=== PATIENT | female | born 1990 | race Caucasian/White ===

== ENCOUNTER 2020-04-21 08:43 | Outpatient (REF) | payer OTHER, SELFPAY | END 2020-04-21 08:44 | disposition home or self-care (01) | LOC: HO.HOSX 08:43 | PROVIDERS: Visit Provider Physician Assistant | DX: Z13.89 Encounter for screening for other disorder (principal) ==

== ENCOUNTER 2020-04-23 08:43 | Outpatient (REF) | payer OTHER, SELFPAY ==
--- NOTE | 2020-04-23 12:38 | XR_ITS ---
EXAMINATION: XR SHOULDER, RIGHT XR SHOULDER, LEFT CLINICAL INFORMATION: Shoulder pain. COMPARISON: None TECHNIQUE: Each shoulder is imaged in 3 views. There are a total of 6 views. FINDINGS: There is no fracture or dislocation or destructive process. The bony mineralization is normal. The glenohumeral joint shows no narrowing or erosive change or chondrocalcinosis. Bilateral acromioclavicular alignment appears normal. There are no visible rotator cuff calcifications on either side. The lung apices appear clear. No pleural reaction. XR/XR shoulder LT min 2V IMPRESSION: Unremarkable bilateral shoulders.
--- NOTE | 2020-04-23 12:38 | XR_ITS ---
EXAMINATION: XR SHOULDER, RIGHT XR SHOULDER, LEFT CLINICAL INFORMATION: Shoulder pain. COMPARISON: None TECHNIQUE: Each shoulder is imaged in 3 views. There are a total of 6 views. FINDINGS: There is no fracture or dislocation or destructive process. The bony mineralization is normal. The glenohumeral joint shows no narrowing or erosive change or chondrocalcinosis. Bilateral acromioclavicular alignment appears normal. There are no visible rotator cuff calcifications on either side. The lung apices appear clear. No pleural reaction. XR/XR shoulder RT min 2V IMPRESSION: Unremarkable bilateral shoulders.
== END 2020-04-23 08:44 | disposition home or self-care (01) ==
LOC: HO.HOSX 08:43
PROVIDERS: Visit Provider Physician Assistant
DX: M25.511 Pain in right shoulder (principal); M25.512 Pain in left shoulder
CPT/HCPCS: 73030

== ENCOUNTER 2021-06-16 14:08 | Outpatient (REF) | payer MEDICAID, SELFPAY ==
[2021-06-16 14:52] LABS: MANUAL DIFF FLAG NO
[2021-06-16 15:02] LABS: Basophils Percent Auto 0.3 % (0-2); Eosinophils Absolute Auto 0.2 X10*3/uL (0.0-0.4); Eosinophils Percent Auto 3.8 % (0-4); Hemoglobin 10.6 g/dl (12.0-16.0); Imm Gran Abs Auto 0.01 X10*3/uL (0.00-0.03); Imm Gran Pct Auto 0.2 % (0.0-0.4); Lymphocytes Absolute Auto 2.6 X10*3/uL (1.2-4.9); Lymphocytes Percent Auto 44.2 % (20-40); Mean Corpuscular HGB Conc 31.2 g/dl (31.0-35.0); Mean Corpuscular Hemoglobin 28.3 pg (27.0-33.0); Mean Corpuscular Volume 90.7 fL (80.0-98.0); Mean Platelet Volume 10.3 fL (9.4-12.3); Monocytes Absolute Auto 0.4 X10*3/uL (0.1-1.2); Monocytes Percent Auto 6.7 % (2-11); Neutrophils Absolute Auto 2.6 x10*3/uL (2.0-8.3); Neutrophils Percent Auto 44.8 % (45-73); Platelet Count 339 X10*3/uL (160-400); Red Blood Count 3.75 X10*6/uL (4.20-5.50); Red Cell Distribution Width 13.6 % (11.0-16.0); White Blood Count 5.8 X10*3/uL (4.8-10.8)
[2021-06-16 15:33] LABS: Alanine Aminotransferase 24 U/L (0-31); Albumin Level 3.9 g/dL (3.5-5.0); Alkaline Phosphatase 34 U/L (39-117); Anion Gap 10 (12-20); Aspartate Amino Transferase 19 U/L (5-31); Bilirubin Total 0.3 mg/dL (0.0-1.0); Blood Urea Nitrogen 9 mg/dL (9-16); Calcium 8.9 mg/dL (8.4-10.2); Carbon Dioxide 24 mmol/L (22-29); Chloride 109 mmol/L (96-108); Cholesterol 141 mg/dL; Estimated Glomerular Filt Rate > 60; Glucose Random 95 mg/dL (60-115); HDL Cholesterol 50 mg/dL; LDL Cholesterol Calculated 81 mg/dl; Potassium 4.2 mmol/L (3.3-5.1); Sodium 139 mmol/L (135-145); Total Protein 6.7 g/dL (6.5-8.0); Triglycerides 51 mg/dL
[2021-06-16 15:54] LABS: Vitamin B12 392 pg/mL (200-900)
[2021-06-16 16:28] LABS: Ferritin 7 ng/mL (10-122)
[2021-06-16 17:36] LABS: CT PCR NOT DETECTED (Not Detect.); NG PCR NOT DETECTED (Not Detect.)
[2021-06-17 03:49] LABS: HIV AB/AG Nonreactive (Nonreactive)
[2021-06-17 03:54] LABS: Syphilis Screen Nonreactive (Nonreactive)
== END 2021-06-16 14:09 | disposition home or self-care (01) ==
LOC: HO.LAB 14:08
PROVIDERS: PCP Internal Medicine; Visit Provider Internal Medicine
DX: Z11.3 Encounter for screening for infections with a predominantly sexual mode of transmission (principal); Z11.4 Encounter for screening for human immunodeficiency virus [HIV]; B07.0 Plantar wart; D64.89 Other specified anemias; M54.2 Cervicalgia
CPT/HCPCS: 80053; 80061; 82607; 82728; 85025; 86780; 87389; 87491; 87591

== ENCOUNTER 2021-12-08 15:07 | Outpatient (REF) | payer MEDICAID, SELFPAY ==
[2021-12-08 15:21] LABS: MANUAL DIFF FLAG NO
[2021-12-08 15:29] LABS: Basophils Percent Auto 0.2 % (0-2); Eosinophils Absolute Auto 0.1 X10*3/uL (0.0-0.4); Eosinophils Percent Auto 1.3 % (0-4); Hemoglobin 11.6 g/dl (12.0-16.0); Imm Gran Abs Auto 0.02 X10*3/uL (0.00-0.03); Imm Gran Pct Auto 0.2 % (0.0-0.4); Lymphocytes Absolute Auto 2.9 X10*3/uL (1.2-4.9); Lymphocytes Percent Auto 35.2 % (20-40); Mean Corpuscular HGB Conc 32.2 g/dl (31.0-35.0); Mean Corpuscular Hemoglobin 27.1 pg (27.0-33.0); Mean Corpuscular Volume 84.1 fL (80.0-98.0); Mean Platelet Volume 9.9 fL (9.4-12.3); Monocytes Absolute Auto 0.6 X10*3/uL (0.1-1.2); Monocytes Percent Auto 7.1 % (2-11); Neutrophils Absolute Auto 4.6 x10*3/uL (2.0-8.3); Platelet Count 325 X10*3/uL (160-400); Red Blood Count 4.28 X10*6/uL (4.20-5.50); Red Cell Distribution Width 16.1 % (11.0-16.0); White Blood Count 8.2 X10*3/uL (4.8-10.8)
[2021-12-08 15:58] LABS: Alanine Aminotransferase 8 U/L (0-31); Albumin Level 4.3 g/dL (3.5-5.0); Alkaline Phosphatase 41 U/L (39-117); Anion Gap 13 (12-20); Aspartate Amino Transferase 13 U/L (5-31); Bilirubin Total 0.5 mg/dL (0.0-1.0); Blood Urea Nitrogen 6 mg/dL (9-16); Calcium 9.2 mg/dL (8.4-10.2); Carbon Dioxide 25 mmol/L (22-29); Chloride 104 mmol/L (96-108); Estimated Glomerular Filt Rate > 60; Glucose Random 94 mg/dL (60-115); Potassium 4.7 mmol/L (3.3-5.1); Sodium 137 mmol/L (135-145); Total Protein 7.4 g/dL (6.5-8.0)
[2021-12-08 16:18] LABS: Ferritin 10 ng/mL (10-122); Thyroid Stimulating Hormone 1.53 uIU/mL (0.32-4.0)
== END 2021-12-08 15:08 | disposition home or self-care (01) ==
LOC: HO.LAB 15:07
PROVIDERS: PCP Internal Medicine; Visit Provider Internal Medicine
DX: Z00.00 Encounter for general adult medical examination without abnormal findings (principal); Z13.31 Encounter for screening for depression; D50.8 Other iron deficiency anemias
CPT/HCPCS: 36415; 80053; 82728; 84443; 85025

== ENCOUNTER 2022-08-02 11:00 | Outpatient (RCR) | payer MEDICAID, SELFPAY ==
--- NOTE | 2022-07-01 14:25 | MHC.PT.EP ---
[facility] [place] Office [place] Office [place] Office [address] Tracey Serrano [address] [phone] F: [phone] F: [phone] F: [phone] F: [phone] Physical Therapy Plan of Care Date of Evaluation: Date of Surgery: N/A Diagnosis: Lopez's palsy (RC) Assessment: pt is a 32 y/o female presenting to physical therapy w/ referring diagnosis of Lopez's palsy. Her initial onset was approximately 3 weeks ago putting her in the optimal timeframe for neuroplasticity and rehabilitation. She currently presents w/ significant facial paralysis that is limiting the ability to protect her eye, chew and swallow appropriately to prevent choking. Impairments include pain, decreased range of motion, decreased strength, impaired functional mobility, and impaired postural awareness. pt is a good candidate for skilled PT due to age, potential remediation of impairments, typical disease/condition progression and prognosis, comorbidities, and motivation. pt would benefit from skilled PT intervention to provide a tailored strengthening and stretching exercise program, functional training, gait training, postural re-training, neuromuscular re-education, modalities as needed for pain, equipment safety demonstration. Frequency and Duration: The patient will be seen 3x/wk for 4 wks Short Term Goals: pt will be I w/ HEP to promote self-management of condition. pt will improve L eye closure to 100% to protect eye during sneezing/coughing. Water Resource Manager Goals: pt will demonstrate 100 % symmetry in orbicularis anna to promote ease in self-feeding including drinking from a straw. pt will improve R eye opening by 75% to promote ease in visual scanning of environment for ambulation and driving. Treatment Plan: Modalities to reduce pain, spasms and effusion. Manual therapy to restore motion and function. Therapeutic exercise to improve strength and flexibility. Neuromuscular re-education for posture and balance. Therapeutic activities to return to functional activities of daily living. Electronically signed by: Mary York PT, DPT Please sign and return to therapist. Thank you for your referral.
--- NOTE | 2022-08-26 08:24 | MHC.PT.DC ---
[facility] [place] Office [place] Office [place] Office [address] Tracey Serrano 140 [facility] [phone] F: [phone] F: [phone] F: [phone] F: [phone] Physical Therapy Discharge Report Diagnosis: Lopez's palsy (RC) Date of Surgery: N/A Date of Evaluation: 07/01/22 Date of Discharge: 08/26/22 Treatments to Date: 9 Cancellations to Date: 3 No Shows to Date: 1 Discharge Status: Improved Function Discharge Summary: The patient overall felt her neuromuscular coordination and facial muscle strength were improving. The patient, however, was resistant to education that exercise has the greatest effect on her recovery as opposed to other modalities including NMES and soft tissue manipulation. She would not be appropriate for re-referral for this diagnosis as she has already been given a complete home exercise program and had minimal response to modalities. Electronically signed by: Mary York PT, DPT Please sign and return to therapist. Thank you for your referral.
== END 2022-08-26 08:25 | disposition home or self-care (01) ==
LOC: HO.PT 11:00
PROVIDERS: PCP Internal Medicine; Visit Provider Internal Medicine
DX: G51.0 Bell's palsy (principal)
CPT/HCPCS: 97110; 97112; 97140; 97161

== ENCOUNTER 2023-10-06 11:15 | Outpatient (REF) | payer MEDICAID, SELFPAY ==
[2023-10-06 11:29] LABS: MANUAL DIFF FLAG NO
[2023-10-06 11:57] LABS: Basophils Percent Auto 0.4 % (0-2); Eosinophils Absolute Auto 0.2 X10*3/uL (0.0-0.4); Eosinophils Percent Auto 2.3 % (0-4); Hematocrit 38.9 % (37.0-47.0); Hemoglobin 12.5 g/dl (12.0-16.0); Imm Gran Abs Auto 0.02 X10*3/uL (0.00-0.03); Imm Gran Pct Auto 0.3 % (0.0-0.4); Lymphocytes Absolute Auto 2.6 X10*3/uL (1.2-4.9); Lymphocytes Percent Auto 32.7 % (20-40); Mean Corpuscular HGB Conc 32.1 g/dl (31.0-35.0); Mean Corpuscular Hemoglobin 27.8 pg (27.0-33.0); Mean Corpuscular Volume 86.4 fL (80.0-98.0); Mean Platelet Volume 10.6 fL (9.4-12.3); Monocytes Absolute Auto 0.7 X10*3/uL (0.1-1.2); Monocytes Percent Auto 8.7 % (2-11); Neutrophils Absolute Auto 4.3 x10*3/uL (2.0-8.3); Neutrophils Percent Auto 55.6 % (45-73); Platelet Count 334 X10*3/uL (160-400); Red Cell Distribution Width 13.7 % (11.0-16.0); White Blood Count 7.8 X10*3/uL (4.8-10.8)
[2023-10-06 12:15] LABS: Amphetamine Screen Urine Not Detected (Not Detect); Barbiturates, Urine Not Detected (Not Detect); Benzodiazepines Screen Urine Not Detected (Not Detect); Buprenorphine Scr Not Detected (Not Detect); Cannabinoid Screen Urine Not Detected (Not Detect); Cocaine Screen Urine Not Detected (Not Detect); Fentanyl, urine Not Detected (Not Detect); Methadone Screen, Urine Not Detected (Not Detect); Opiate Screen Urine Not Detected (Not Detect); Oxycodone Screen Urine Not Detected (Not Detect); Phencyclidine Screen Urine Not Detected (Not Detect)
[2023-10-06 12:34] LABS: Alanine Aminotransferase 7 U/L (0-31); Albumin Level 4.1 g/dL (3.5-5.0); Alkaline Phosphatase 44 U/L (39-117); Anion Gap 8 (12-20); Aspartate Amino Transferase 12 U/L (5-31); Bilirubin Total 0.3 mg/dL (0.0-1.0); Blood Urea Nitrogen 9 mg/dL (9-16); Calcium 9.1 mg/dL (8.4-10.2); Carbon Dioxide 27 mmol/L (22-29); Chloride 107 mmol/L (96-108); Estimated Glomerular Filt Rate > 60; Glucose Random 94 mg/dL (60-115); Sodium 138 mmol/L (135-145); Total Protein 7.4 g/dL (6.5-8.0)
[2023-10-06 13:09] LABS: HIV AB/AG Nonreactive (Nonreactive); HIV Num 1 0.05 S/CO (0.00-0.99); Syphilis Screen Nonreactive (Nonreactive)
[2023-10-06 13:29] LABS: CT PCR NOT DETECTED (Not Detect.); NG PCR NOT DETECTED (Not Detect.)
== END 2023-10-06 11:16 | disposition home or self-care (01) ==
LOC: HO.LAB 11:15
PROVIDERS: PCP Internal Medicine; Visit Provider Internal Medicine
DX: Z00.00 Encounter for general adult medical examination without abnormal findings (principal); Z11.3 Encounter for screening for infections with a predominantly sexual mode of transmission; Z11.4 Encounter for screening for human immunodeficiency virus [HIV]; N73.9 Female pelvic inflammatory disease, unspecified; R10.2 Pelvic and perineal pain; R10.30 Lower abdominal pain, unspecified; F12.19 Cannabis abuse with unspecified cannabis-induced disorder
CPT/HCPCS: 0353U; 36415; 80053; 80307; 85025; 86780; 87389